=== PATIENT | female | born 1980 | race Two or more races ===

== ENCOUNTER 2024-12-18 20:36 | Emergency (ER) | payer MEDICAID, SELFPAY ==
[2024-12-18 20:37] VITALS: BMI 27.6
--- NOTE | 2024-12-18 20:42 | XR_ITS ---
Examination: CT abdomen with intravenous contrast CT pelvis with intravenous contrast 2-D coronal reconstructions 2-D sagittal reconstructions Date and time of exam:December 18, 2024 10:46 PM Comparison 03/23/2022 INDICATIONS: Onset of lower today abdominal pain beginning. CTDI: vol (mGy) 7.82 DLP: (mGycm) 410 Technique: Multiple axial sections of the abdomen and pelvis have been obtained. 64 slice high-resolution scanner used. 3 mm axial sections have been obtained, post intravenous injection 60 cc [id number] 2-D sagittal, coronal reconstructions obtained. Low dose protocols were performed. One or more of the following dose reduction techniques were used; automated exposure control, adjustment of the mA and/or KV according to patient size, use of iterative reconstruction technique. Findings: No focal liver or splenic lesions Gallstones No pancreatic or adrenal mass No renal or ureteral calculi, no hydronephrosis 10 mm fat-containing umbilical hernia No bowel obstruction Normal appendix No diverticulitis Retroverted uterus Urinary bladder wall thickening up to 8 mm The osseous structures are intact IMPRESSION: Cystitis pattern
--- NOTE | 2024-12-18 20:44 | PD.EDABDPN ---
ED Abdominal Pain RME/HPI General Chief Complaint: Abdominal Pain Stated complaint: low abd pain Time seen by provider: 12/18/24 20:39 Arrival date/time: 12/18/24 20:36 Limitations: no limitations RME / HPI RME / HPI narrative: Lower abdominal pain that started this morning. No chronic illness. Last meal at 08:00 AM. No nausea, vomiting, or diarrhea. No urinary complaints. No fevers. She is self ambulate without assistance. Has no other complaints. Related Data Previous Rx's ?Medication ?Instructions ?Recorded docusate sodium 100 mg capsule 100 mg PO BID #30 caps 04/28/24 (Colace) hydrocodone 5 mg-acetaminophen 325 1 tab PO Q8H PRN pain (scale score 04/28/24 mg tablet 7-10) #10 tabs ibuprofen 600 mg tablet 600 mg PO Q8H PRN pain (scale 04/28/24 score 4-6) #15 tabs dicyclomine 20 mg tablet 20 mg PO TID #20 tabs 12/18/24 Allergies Allergy/AdvReac Type Severity Reaction Status Date / Time No Known Allergies Allergy Verified 12/18/24 20:43 Review of Systems Review of Systems Systems Reviewed: All systems reviewed, normal except as documented ED Exam General Limitations: Present no limitations General appearance: Present alert and other (ill appearing ) Head Head exam: Present atraumatic Eye Eye exam: Present normal appearance, PERRL and EOMI ENT ENT exam: Present normal exam, normal oropharynx and mucous membranes moist Neck Neck exam: Present normal inspection, full ROM and trachea midline Chest Chest inspection: Present normal inspection and symmetric chest wall rise Respiratory Respiratory exam: Present normal lung sounds bilaterally Cardiovascular Cardiovascular exam: Present regular rate, normal rhythm and normal heart sounds Abdominal Exam Abdominal exam: Present soft and normal bowel sounds Extremities Exam Extremities exam: Present normal inspection and full ROM Back Exam Back exam: Present normal inspection and full ROM Neurological Exam Neurological exam: Present alert, oriented X3 and CN II-XII intact Psychiatric Psychiatric exam: Present normal affect and normal mood Skin Skin exam: Present warm, dry, intact and normal color Course Quality Measures none Orders Category Date Time Status CT Screening NOW Care 12/18/24 20:42 Active Insert IV NOW Care 12/18/24 21:[address] abdomen pelvis w con Stat Exams 12/18/24 20:42 Completed CBC Stat Lab 12/18/24 20:58 Completed CMP [Comprehensive Metabolic Panel] Stat Lab 12/18/24 20:58 Completed HCG,Qualitative Serum Stat Lab 12/18/24 20:58 Completed Lipase Stat Lab 12/18/24 20:58 Completed UA [Urinalysis] Stat Lab 12/18/24 21:01 Completed Morphine Inj Med 12/18/24 20:43 Discontinued 4 mg IVP X1 ONE Ondansetron Inj [Zofran Inj] Med 12/18/24 20:43 Discontinued 4 mg IVP X1 ONE Vital Signs Vital signs: Vital Signs Temperature 98.1 F 12/18/24 20:48 Pulse Rate 79 12/18/24 20:48 Respiratory Rate 17 12/18/24 20:48 Blood Pressure 125/81 12/18/24 20:48 Pulse Oximetry (%) 98 12/18/24 20:48 Oxygen Delivery Method Room Air 12/18/24 20:48 Abdominal Pain MDM MDM Narrative MDM Narrative:: 44-year-old female is here the ER with lower abdominal pain. She has no chronic disease. She is diffusely tender lower quadrants with no rebound tenderness or guarding. Vital signs are stable. Her CBC, CMP, lipase, and urinalysis are all unremarkable. CT reports possible cystitis pattern. However patient has no urinary symptoms. She has no urinary frequency or dysuria. Her urinalysis is unremarkable. Discussed likely viral etiology. Will discharge with a prescription of Bentyl to help with abdominal cramping. We discussed return precautions. Patient and her daughter reviewed return as needed for any worsening emergent changes including any urinary symptoms. Patient data External records reviewed:: Other (specify) Clinical information provided by:: patient and family Social determinants that could affect healthcare access:: none Patient has the following chronic illnesses:: n/a How is presenting disease/condition affected by chronic disease/condition?: no chronic disease Evaluation data The following diagnostics were reviewed and interpreted by me:: lab results (No leukocytosis, no metabolic derangement, lipase is unremarkable. Urinalysis results are within normal limits.) Lab and/or radiology exams considered but not ordered:: n/a Interpretation Summary: Mild leukocytosis of 15.6 thousand, otherwise unremarkable Medications / Prescriptions Medications or Prescriptions considered but not ordered:: n/a Medication administrations:: Medication Administration History Discontinued Medications Morphine Sulfate (Morphine Sulf Inj 10 Mg/Ml Vial) 4 mg IVP X1 ONE Stop: 12/18/24 20:44 Last Admin: 12/18/24 21:24 Dose: 4 mg Documented By: EF Ondansetron HCl (Ondansetron Inj 2 Mg/Ml Inj 2 Ml) 4 mg IVP X1 ONE; Protocol Stop: 12/18/24 20:44 Last Admin: 12/18/24 21:25 Dose: 4 mg Documented By: EF See above Consultations Consultation(s) initiated? (list below): No Diagnosis Differential diagnosis abdominal pain: acute appendicitis, calculus of kidney, constipation and diverticulitis Most likely diagnosis given after review of the tests above:: Abdominal cramping, abdominal pain Admission Indicated Admission indicated?: not indicated Admission Request Was there a request for admission?: No Disposition Plan Disposition Plan: Discharge Discharge Attestation Discharge Attestation: The patient and all family members were given an opportunity to ask questions and understood the discharge instructions. Discharge instructions specifically effects, indications for sooner follow up or return to the emergency department, and the expected course of current diagnosis. Patient condition: Stable Discharge Plan Plan Patient Disposition: HOME (Self Care) Patient condition on transfer: Stable Prescriptions/Referrals Prescriptions/Med Rec: New dicyclomine 20 mg tablet 20 mg PO TID Qty: 20 0RF No Action docusate sodium [Colace] 100 mg capsule 100 mg PO BID Qty: 30 0RF ibuprofen 600 mg tablet 600 mg PO Q8H PRN (Reason: pain (scale score 4-6)) Qty: 15 0RF hydrocodone-acetaminophen 5-325 mg tablet 1 tab PO Q8H MDD 3 PRN (Reason: pain (scale score 7-10)) Qty: 10 0RF Referrals: Bijan Spicer MD [Primary Care Provider] - In 1 week Problem List Clinical Impression: Abdominal pain Patient/Caregiver Discharge Instructions Education Materials: Abdominal Pain Additional Instructions: Maintain hydration. Use Tylenol and ibuprofen as needed for comfort. Use the provided medication as prescribed. Please return here if she develops any urinary symptoms including urinary frequency or pain with urination. Please return to the emergency room anytime for any worsening or emergent changes. Print Language: [place] Stand Alone Forms: Daniela Award Info., Patient Portal Info Letter
[2024-12-18 20:48] VITALS: BP 125/81; PULSE 79; RESP 17; TEMP 36.7; O2SAT 98
[2024-12-18 21:12] LABS: Collection Type, Urine Voided
[2024-12-18 21:17] LABS: Basophils % (Auto) 0 % (0-2.5); Eosinophils # (Auto) 0.1 Thou/mm3 (0.0-0.5); Eosinophils % (Auto) 1 % (0-10); Hematocrit 34.3 % (36.0-46.0); Hemoglobin 11.9 g/dL (12.0-16.0); Immature Granulocytes % (Auto) 0 % (0-0); Immature Granulocytes Auto 0.07 Thou/mm3 (0.00-0.00); Lymphocytes # (Auto) 2.3 Thou/mm3 (1.0-4.8); Lymphocytes % (Auto) 15 % (10-50); Mean Corpuscular HGB Conc 34.7 g/dl (31.0-37.0); Mean Corpuscular Volume 84 fL (80-100); Monocytes # (Auto) 1.2 Thou/mm3 (0.0-0.8); Monocytes % (Auto) 8 % (0-12); Neutrophils # (Auto) 11.8 Thou/mm3 (1.8-7.7); Neutrophils % (Auto) 76 % (37-80); Nucleated Red Blood Cell % 0 /100 WBC (0); Platelet Count 240 Thou/mm3 (140-440); RDW Standard Deviation 48.7 fL (36.4-46.3); White Blood Count 15.6 Thou/mm3 (3.6-11.0)
[2024-12-18 21:20] LABS: Bilirubin,Urine Negative (Negative); Blood,Urine Negative (Negative); Clarity,Urine Clear (Clear/Hazy); Color,Urine Lt-Yellow (Lt Yel-Yel); Glucose, Urine Negative (Negative); Ketones,Urine Negative (Negative); Leukocyte Esterase,Urine Positive (Negative); Nitrite,Urine Negative (Negative); PH,Urine 6.5 (5.0-7.0); Protein,Urine Negative (Neg - Trace); RBC,Urine 1 /hpf (0-3); Specific Gravity,Urine 1.024 (1.001-1.035); Squamous Epithelial Cell,Urine 7 /hpf (0-5); Urobilinogen,Urine Negative mg/dL (0.0-1.0); WBC,Urine 3 /hpf (0-5)
[2024-12-18] MEDS: MORPHINE SULF INJ 10 MG/ML VIAL 4 MG IVP (21:24)
[2024-12-18] MEDS: ONDANSETRON INJ 2 MG/ML INJ 2 ML 4 MG IVP (21:25)
[2024-12-18 21:26] LABS: HCG,Qualitative Serum Negative
[2024-12-18 21:36] LABS: Alanine Aminotransferase 17 U/L (10-49); Albumin, Serum 4.3 gm/dL (3.5-5.0); Albumin/Globulin Ratio 1.7 (1.2-2.2); Alkaline Phosphatase 73 U/L (46-116); Anion Gap 7 (7-16); Aspartate Amino Transferase 18 U/L (0-34); BUN/Creatinine Ratio 14 Ratio (12-20); Bilirubin,Total 0.5 mg/dL (0.3-1.2); Blood Urea Nitrogen 10 mg/dL (9-23); Calcium 8.8 mg/dL (8.3-10.6); Calcium (Corrected) 8.8 mg/dL (8.5-10.1); Carbon Dioxide 27.6 mMol/L (20.0-31.0); Chloride 104 mMol/L (98-107); Creatinine (Component) 0.7 mg/dL (0.6-1.3); Estimated Creatinine Clearance 98.7 mL/min (>60); Globulin 2.6 gm/dL (2.3-3.5); Glucose 105 mg/dL (74-106); Lipase 27 U/L (12-53); Osmolality,Calculated 276 (275-295); Potassium 3.5 mMol/L (3.4-5.1); Sodium 139 mMol/L (136-145); Total Protein 6.9 gm/dL (5.7-8.2); eGFR > 60 See Note
[2024-12-18 23:18] VITALS: BP 120/79; PULSE 77; RESP 18; TEMP 37.6; O2SAT 97
[2024-12-18 23:35] VITALS: PULSE 85; RESP 14; TEMP 37; O2SAT 99
== END 2024-12-18 23:35 | disposition home or self-care (01) ==
PROVIDERS: Physician Assistant Medical; Emergency Provider Emergency Medicine; PCP Family Medicine
DX: R10.30 Lower abdominal pain, unspecified (principal)
CPT/HCPCS: 36415; 74177; 80053; 81001; 83690; 84703; 85025; 96374; 96375; 99285; A4649; J2270; J2405; Q9967

== ENCOUNTER 2024-12-19 08:33 | Emergency (ER) | payer MEDICAID, SELFPAY ==
[2024-12-19 09:07] VITALS: BP 106/66; PULSE 84; RESP 18; TEMP 36.8; O2SAT 99; BMI 29.2
--- NOTE | 2024-12-19 09:12 | PD.EDABDPN ---
ED Abdominal Pain RME/HPI General Chief Complaint: Abdominal Pain Stated complaint: LOWER ABD PAIN, URGENCY, N/V/D. CAME TO ED YEST. Time seen by provider: 12/19/24 09:10 Arrival date/time: 12/19/24 08:33 44-year-old female presents emergency department today for complaints of lower abdominal pain, urgency, nausea and vomiting, dysuria patient reports he was here yesterday and had a full workup Limitations: no limitations Related Data Previous Rx's ?Medication ?Instructions ?Recorded docusate sodium 100 mg capsule 100 mg PO BID #30 caps 04/28/24 (Colace) hydrocodone 5 mg-acetaminophen 325 1 tab PO Q8H PRN pain (scale score 04/28/24 mg tablet 7-10) #10 tabs ibuprofen 600 mg tablet 600 mg PO Q8H PRN pain (scale 04/28/24 score 4-6) #15 tabs dicyclomine 20 mg tablet 20 mg PO TID #20 tabs 12/18/24 ciprofloxacin HCl 500 mg tablet 500 mg PO BID 7 days #14 tabs 12/19/24 ibuprofen 600 mg tablet 600 mg PO Q6H #30 tabs 12/19/24 Allergies Allergy/AdvReac Type Severity Reaction Status Date / Time No Known Allergies Allergy Verified 12/19/24 08:41 Review of Systems Review of Systems Systems Reviewed: All systems reviewed, normal except as documented Constitutional Constitutional: Reports system reviewed and no additional complaints, except as documented, Denies fever(s) and Denies headache(s) Eyes Eyes: Reports system reviewed and no additional complaints, except as documented and Denies blurry vision ENT Ears, Nose, Mouth, and Throat: Reports system reviewed and no additional complaints, except as documented, Denies headache(s), Denies nasal congestion and Denies nasal discharge Cardiovascular Cardiovascular: Reports system reviewed and no additional complaints, except as documented, Denies chest pain and Denies dyspnea Respiratory Respiratory: Reports system reviewed and no additional complaints, except as documented, Denies chest congestion, Denies cough and Denies dyspnea Gastrointestinal Gastrointestinal: Reports system reviewed and no additional complaints, except as documented and Reports abdominal pain Integumentary/Breasts Skin/Breast: Reports system reviewed and no additional complaints, except as documented and Denies rash Neurologic Neurologic: Reports system reviewed and no additional complaints, except as documented, Reports as per HPI and Denies headache(s) Past Medical History Past Medical History NEUROLOGIC: Negative Neurological Disorders or Seizures CARDIAC: Negative Cardiac Disorders or Congestive Heart Failure RESPIRATORY: Negative Chronic Obstructive Pulmonary Disease (COPD) or Asthma GASTROINTESTINAL: Negative Gastrointestinal Disorders or Hepatitis GENITOURINARY: Negative Genitourinary Disorders or Renal Disease REPRODUCTIVE: Positive Previous Pregnancies (4) MUSCULOSKELETAL: Negative Musculoskeletal Disorders ENDOCRINE: Positive Endocrine Disorders; Negative Diabetes Mellitus Type 1 or Diabetes Mellitus Type 2 HEMATOLOGIC: Negative Blood Disorders or Sickle Cell Disease OTHER HISTORY: Positive Chicken Pox; Negative Hospitalization, Autoimmune Disease, Down Syndrome, Developmental Delay, Shingles, Falls, Blood Transfusions, Blood Transfusion Reaction, Anesthesia Reactions, MRSA, VRSA, Vancomycin-Resistant Enterococci, Human Immunodeficiency Virus (HIV), Measles, Mumps, Rubella (Romansh Measles), Pertussis, Clostridium Difficile or Cancer Family History FAMILY HISTORY: Positive Family Cardiac Disorders; Negative Family Psychiatric Problems, Family Respiratory Disorders, Family Gastrointestinal Problems, Family Cancer, Family Surgery or Family Anesthesia Reaction Surgical History SURGICAL: Positive Tubal Ligation and Section (4) Social History SMOKING STATUS: Never smoker ED Exam General Limitations: Present no limitations General appearance: Present alert and in no apparent distress Head Head exam: Present atraumatic, normocephalic and normal inspection Eye Eye exam: Present normal appearance, PERRL and EOMI; Absent conjunctival injection ENT ENT exam: Present normal exam, normal oropharynx and mucous membranes moist Neck Neck exam: Present normal inspection, full ROM and trachea midline Chest Chest inspection: Present normal inspection and symmetric chest wall rise Respiratory Respiratory exam: Present normal lung sounds bilaterally; Absent respiratory distress Cardiovascular Cardiovascular exam: Present regular rate, normal rhythm and normal heart sounds Abdominal Exam Abdominal exam: Present soft and normal bowel sounds; Absent distention, tenderness, guarding, rebound, rigidity, Donahue's sign or tenderness at McBurney's Point Abdominal tenderness: Absent RUQ or RLQ Extremities Exam Extremities exam: Present normal inspection and full ROM Back Exam Back exam: Present normal inspection, full ROM, tenderness, muscle spasm and paraspinal tenderness; Absent CVA tenderness (R) or CVA tenderness (L) Neurological Exam Neurological exam: Present alert, oriented X3 and CN II-XII intact Psychiatric Psychiatric exam: Present normal affect and normal mood Skin Skin exam: Present warm, dry, intact and normal color Course Quality Measures none Orders Category Date Time Status Ketorolac Inj [Toradol Inj] Med 12/19/24 09:11 Discontinued 30 mg IM X1 ONE Lidocaine 1% 20 ml [Xylocaine 1% 20 ML] Med 12/19/24 09:11 Discontinued 2.1 ml INFL X1 ONE cefTRIAXone [Rocephin] Med 12/19/24 09:11 Discontinued 1,000 mg IM X1 ONE Vital Signs Vital signs: Vital Signs Temperature 98.2 F 12/19/24 09:07 Pulse Rate 84 12/19/24 09:07 Respiratory Rate 18 12/19/24 09:07 Blood Pressure 106/66 12/19/24 09:07 Pulse Oximetry (%) 99 12/19/24 09:07 Oxygen Delivery Method Room Air 12/19/24 09:07 O2 saturation 99% room air within normal limits Abdominal Pain MDM MDM Narrative MDM Narrative:: 44-year-old female presents emergency department today for complaints of lower abdominal pain, urgency, nausea and vomiting, dysuria patient reports he was here yesterday and had a full workup On exam patient well-appearing patient does not appear toxic patient walks steady gait patient has no CVA tenderness does not appear to be in significant pain I reviewed the patient's lab work and imaging from yesterday symptoms consistent with cystitis Patient was given an injection of antibiotics and pain medication Patient discharged home in no distress to follow-up with primary care doctor in the next 24 to 48 hours and for any worsening symptoms to return to the ER immediately Patient data External records reviewed:: [facility] previous records Clinical information provided by:: patient Social determinants that could affect healthcare access:: none Patient has the following chronic illnesses:: None How is presenting disease/condition affected by chronic disease/condition?: no chronic disease Evaluation data The following diagnostics were reviewed and interpreted by me:: lab results and radiology exam(s) Lab and/or radiology exams considered but not ordered:: Labs and radiology reviewed from yesterday Interpretation Summary: Reviewed by me Medications / Prescriptions Medications or Prescriptions considered but not ordered:: Given Medication administrations:: Medication Administration History Discontinued Medications Ceftriaxone Sodium (Ceftriaxone Sod Inj 1,000 Mg Vial) 1,000 mg IM X1 ONE Stop: 12/19/24 09:12 Last Admin: 12/19/24 09:39 Dose: 1,000 mg Documented By: CN Ketorolac Tromethamine (Ketorolac Inj 30 Mg/Ml Vial) 30 mg IM X1 ONE Stop: 12/19/24 09:12 Last Admin: 12/19/24 09:41 Dose: 30 mg Documented By: JOI Lidocaine HCl (Lidocaine Hcl 1% 20 Ml Vial) 2.1 ml INFL X1 ONE Stop: 12/19/24 09:12 Last Admin: 12/19/24 09:40 Dose: 2.1 ml Documented By: JOI Given Consultations Consultation(s) initiated? (list below): No Diagnosis Differential diagnosis abdominal pain: abdominal pain, acute appendicitis, pancreatitis and small bowel obstruction Most likely diagnosis given after review of the tests above:: Cystitis Admission Indicated Admission indicated?: not indicated Admission Request Was there a request for admission?: No Disposition Plan Disposition Plan: Discharge Discharge Attestation Discharge Attestation: The patient and all family members were given an opportunity to ask questions and understood the discharge instructions. Discharge instructions specifically effects, indications for sooner follow up or return to the emergency department, and the expected course of current diagnosis. Patient condition: Stable Discharge Plan Plan Patient Disposition: HOME (Self Care) Discharge Disposition comment: Stable Patient condition on transfer: Stable Prescriptions/Referrals Prescriptions/Med Rec: New ciprofloxacin HCl 500 mg tablet 500 mg PO BID 7 Days Qty: 14 0RF ibuprofen 600 mg tablet 600 mg PO Q6H Qty: 30 0RF No Action dicyclomine 20 mg tablet 20 mg PO TID Qty: 20 0RF docusate sodium [Colace] 100 mg capsule 100 mg PO BID Qty: 30 0RF ibuprofen 600 mg tablet 600 mg PO Q8H PRN (Reason: pain (scale score 4-6)) Qty: 15 0RF hydrocodone-acetaminophen 5-325 mg tablet 1 tab PO Q8H MDD 3 PRN (Reason: pain (scale score 7-10)) Qty: 10 0RF Problem List Clinical Impression: Cystitis Patient/Caregiver Discharge Instructions Discharge Activity: activity as tolerated Other Activity Instructions:: follow up with primary in 1 week Education Materials: Anatomy of the Female Urinary Tract, Understanding Urinary Tract ..., When to Use Antibiotics, ED CYSTITIS Female Adult Additional Instructions: Please follow up with your primary care doctor in the next 24-48hrs for any worsening symptoms return here immediately Print Language: Y[place] Stand Alone Forms: Daniela Award Info., Patient Portal Info Letter PA/MARIO Supervising Physician PA/DRAWER IN HAND Supervising Physician: dr waters
[2024-12-19] MEDS: cefTRIAXone SOD INJ 1,000 MG VIAL 1000 MG IM (09:39)
[2024-12-19] MEDS: LIDOCAINE HCL 1% 20 ML VIAL 2.1 ML INFL (09:40)
[2024-12-19 09:41] VITALS: TEMP 36
[2024-12-19] MEDS: KETOROLAC INJ 30 MG/ML VIAL IM (09:41)
[2024-12-19 10:02] VITALS: BP 119/78; O2SAT 98
== END 2024-12-19 10:07 | disposition home or self-care (01) ==
LOC: SERX 10:02
PROVIDERS: Emergency Provider Family Medicine; PCP Family Medicine
DX: N30.90 Cystitis, unspecified without hematuria (principal)
CPT/HCPCS: 96372; 99283; J0696; J1885; J3490